=== PATIENT | male | born 1980 | race Caucasian/White ===

== ENCOUNTER 2018-04-25 11:51 | Emergency (ER) | payer OTHER ==
--- NOTE | 2018-04-25 12:08 | CPEKG ---
Heart Rate: 71 RR Interval: 845 P-R Interval: 140 QRSD Interval: 110 QT Interval: 388 QTC Interval: 422 P [place]: 46 QRS [place]: 9 T Wave [place]: 50 EKG Severity - ABNORMAL ECG - EKG Impression: SINUS RHYTHM EKG Impression: NONSPECIFIC INTRAVENTRICULAR CONDUCTION DELAY Electronically Signed By: Vincent Oneal 25-Apr-2018 13:15:52
--- NOTE | 2018-04-25 12:10 | EDPHY ---
H & P Stated Complaint: allergies/dizzyness x 2 days Time Seen by Provider: 04/25/18 12:09 HPI/ROS: HPI: This is a 37-year-old male who presents with Chief Complaint: allergies/dizziness x 2 days Location: Head Quality: Lightheadedness and dizziness Duration: 4 days Signs and Symptoms: no fever, no nausea, no vomiting, no photophobia, no noise sensitivity, no neck stiffness, no ear pain, no tinnitus, no nasal congestion, no sinus pressure, no weakness, no radiation, no aura Timing: Acute, intermittent, worse with changing positions Severity: Moderate Context: Patient has a history of environmental seasonal allergies taking Zyrtec presents with 4 day history of lightheadedness or dizziness that is worsened with changing positions. He reports that he does not feel lightheaded when he lays still. He also has noticed some left anterior chest non radiating pressure that is worsened with palpating his left pectoralis muscle. Patient is right-hand dominant. Patient reports that this is anterior chest discomfort has been present for approximately 4 days. He describes as intermittent in nature and occurring approximately 2-3 times per day. He denies any heavy lifting, injury, trauma. Father had acute ND and CABG x3 in his 50s. This is his 1st episode of chest pain. No recent long distance trips, lower extremity edema. Patient denies any palpitations, cough, wheezing. Yesterday at work he did experience some shortness of breath and diaphoresis when he was walking up stairs. Modifying Factors: Taking Zyrtec Comment: ROS: see HPI Constitutional: No fever, no chills, no weight loss Eyes: No blurred vision Respiratory: No shortness of breath, no cough Cardiovascular: No chest pain, no palpitations Gastrointestinal: No nausea, no vomiting, no diarrhea, no hematemesis, no blood in stool Genitourinary: No dysuria, no blood in urine Extremities: No myalgias, no edema Neurologic: No weakness, no numbness Skin: No rashes, no petechiae Hematologic: No bruising, no bleeding MEDICAL/SURGICAL/SOCIAL HISTORY: Medical history: Generally healthy. Does not take any regular medications. Surgical history: Denies Social history: Never smoked. Family history noncontributory. CONSTITUTIONAL: Extremely well-appearing middle-aged white male, awake and alert, no obvious distress HEENT: Atraumatic and normocephalic, PERRL, EOMI. Nares patent; no rhinorrhea; no nasal mucosal edema. Tympanic membranes mild effusion. Oropharynx clear, no exudate and moist pink mucosa. Airway patent. No lymphadenopathy. No meningismus. Cardiovascular: Normal S1/S2, regular rate, regular rhythm, without murmur rub or gallop. PULMONARY/CHEST: Symmetrical and left anterior reproducible tenderness. Clear to auscultation bilaterally. Good air movement. No accessory muscle usage. ABDOMEN: Soft, nondistended, nontender, no rebound, no guarding, no peritoneal signs, no masses or organomegaly. No CVAT. EXTREMITIES: 2/2 pulses, strength 5/5, no deformities, no clubbing, no cyanosis or edema. NEUROLOGICAL: no focal neuro deficits. GCS 15. SKIN: Warm and dry, no erythema. no rash. Good capillary refill. Source: Patient Exam Limitations: No limitations - Personal History Current Tetanus Diphtheria and Acellular Pertussis (TDAP): Unsure - Medical/Surgical History Hx Asthma: No Hx Chronic Respiratory Disease: No Hx Diabetes: No Hx Cardiac Disease: No Hx Renal Disease: No Hx Cirrhosis: No Hx Alcoholism: No Hx HIV/AIDS: No Hx Splenectomy or Spleen Trauma: No Other PMH: r knee inj - Social History Smoking Status: Never smoked Constitutional: Initial Vital Signs Temperature (C) 36.6 C 04/25/18 11:55 Heart Rate 84 04/25/18 11:55 Respiratory Rate 18 04/25/18 11:55 Blood Pressure 115/92 H 04/25/18 11:55 O2 Sat (%) 96 04/25/18 11:55 O2 Delivery Mode Room Air Allergies/Adverse Reactions: No Known Allergies Allergy (Unverified 04/25/18 11:54) Home Medications: Medication Instructions [facility] Medical Decision Making - Diagnostics EKG Interpretation: 12 lead EKG: Indication: Chest pain Rhythm: Normal sinus rhythm, rate of 71 beats per minute [place]: Normal Intervals: Normal QRS: Normal ST segments: Prominent in V3 and V4 INTERPRETATION: IVCD, No acute ischemic changes The 12 lead EKG was interpreted by myself and with attending. Imaging Results: Imaging Impressions Chest X-Ray 04/25/18 12:17 Impression: Clear lungs. No acute process. ED Course/Re-evaluation: EKG, labs, chest x-ray, IV fluids, oral medications ordered. Placed on electronic device monitor Initial EKG shows no acute ischemic changes. Reviewed this with attending. Given 500 cc normal saline bolus and aspirin 324 mg upon arrival. HEART score=2 points; low score 1225: Notified by tech that troponin is negative 1250: Labs reviewed. No signs of leukocytosis/anemia/platelet dysfunction/ROBIN/ electrolyte imbalance/VTE/CHF/ACS. Chest x-ray my read shows no effusion, no opacity, no pneumothorax, no widened mediastinum. Ears show eustachian tube dysfunction no otitis media, no otitis externa no tympanic perforation. Patient is currently chest pain-free and he will be given referral to Cardiology to modify risk factors and evaluate candidacy for stress test. This patient was seen under the supervision of my secondary supervising physician. I evaluated care for this patient independently. Discussed this patient with Dr. Oneal. Differential Diagnosis: Chest pain including but not limited to myocardial ischemia, pulmonary embolus, chest wall pain, pleural inflammation and pulmonary infectious causes. Dizziness including but not limited to peripheral and central causes of vertigo , orthostatic causes including dehydration, and blood loss. - Data Points Laboratory Results: Laboratory Results 04/25/18 12:05 04/25/18 12:05 04/25/18 04/25/18 04/25/18 12:09 12:05 12:05 WBC RBC Hgb Hct MCV MCH MCHC RDW Plt Count MPV Neut % (Auto) Lymph % (Auto) Webb % (Auto) Eos % (Auto) Baso % (Auto) Nucleat RBC Rel Count Absolute Neuts (auto) Absolute Lymphs (auto) Absolute Monos (auto) Absolute Eos (auto) Absolute Basos (auto) Absolute Nucleated RBC Immature Gran % Immature Gran # D-Dimer 0.34 ug/mLFEU ug/mLFEU (0.00-0.50) Sodium 143 mEq/L mEq/L (135-145) Potassium 4.6 mEq/L mEq/L (3.3-5.0) Chloride 103 mEq/L mEq/L (97-110) Carbon Dioxide 27 mEq/l mEq/l (22-31) Anion Gap 13 mEq/L mEq/L (8-16) BUN 13 mg/dL mg/dL (7-23) Creatinine 1.0 mg/dL mg/dL (0.7-1.3) Estimated GFR > 60 Glucose 88 mg/dL mg/dL (70-100) Calcium 10.4 mg/dL mg/dL (8.5-10.4) POC Troponin I 0.00 ng/mL ng/mL (0.00-0.08) NT-Pro-B Natriuret Pep < 11 pg/mL pg/mL (0-125) 04/25/18 12:05 WBC 9.93 10^3/uL H 10^3/uL (3.80-9.50) RBC 5.75 10^6/uL 10^6/uL (4.40-6.38) Hgb 17.5 g/dL g/dL (13.7-17.5) Hct 52.1 % H % (40.0-51.0) MCV 90.6 fL fL (81.5-99.8) MCH 30.4 pg pg (27.9-34.1) MCHC 33.6 g/dL g/dL (32.4-36.7) RDW 12.9 % % (11.5-15.2) Plt Count 389 10^3/uL 10^3/uL (150-400) MPV 9.0 fL fL (8.7-11.7) Neut % (Auto) 51.9 % % (39.3-74.2) Lymph % (Auto) 36.7 % % (15.0-45.0) Webb % (Auto) 7.9 % % (4.5-13.0) Eos % (Auto) 2.2 % % (0.6-7.6) Baso % (Auto) 1.0 % % (0.3-1.7) Nucleat RBC Rel Count 0.0 % % (0.0-0.2) Absolute Neuts (auto) 5.16 10^3/uL 10^3/uL (1.70-6.50) Absolute Lymphs (auto) 3.64 10^3/uL H 10^3/uL (1.00-3.00) Absolute Monos (auto) 0.78 10^3/uL 10^3/uL (0.30-0.80) Absolute Eos (auto) 0.22 10^3/uL 10^3/uL (0.03-0.40) Absolute Basos (auto) 0.10 10^3/uL 10^3/uL (0.02-0.10) Absolute Nucleated RBC 0.00 10^3/uL 10^3/uL (0-0.01) Immature Gran % 0.3 % % (0.0-1.1) Immature Gran # 0.03 10^3/uL 10^3/uL (0.00-0.10) D-Dimer Sodium Potassium Chloride Carbon Dioxide Anion Gap BUN Creatinine Estimated GFR Glucose Calcium POC Troponin I NT-Pro-B Natriuret Pep Medications Given: Discontinued Medications Aspirin (Aspirin) 324 mg PO EDNOW ONE Stop: 04/25/18 12:22 Last Admin: 04/25/18 12:26 Dose: 324 mg Sodium Chloride (Ns) 500 mls @ 1,000 mls/hr IV EDNOW ONE PRN Reason: Protocol Stop: 04/25/18 12:45 Last Admin: 04/25/18 12:23 Dose: 500 mls Point of Care Test Results: Chemistry 04/25/18 12:09 POC Troponin I 0.00 ng/mL ng/mL (0.00-0.08) Departure - Departure Disposition: Home, Routine, Self-Care Clinical Impression: Atypical chest pain Eustachian tube dysfunction Qualifiers: Laterality: bilateral Qualified Code(s): H69.83 - Other specified disorders of Eustachian tube, bilateral Condition: Good Instructions: Chest Pain (ED) Additional Instructions: Please reduce stress as much as possible. Limit foods that may cause irritation. Continue to take Zyrtec and use [id number] nasal steroid spray like Flonase or Rhinocort daily. Make sure to drink 8 to 10 glasses of water daily. Please call Cardiology for follow-up in the next 1-2 weeks. They will discussed with the risk factor modification and recommend if you are a candidate for stress testing. Return to the ER immediately if you experience new, continued or worsened chest pain, chest pain that radiates, chest pain accompanied by exertion or associated with shortness of breath, sweating, nausea, dizziness, back pain, or any other symptoms that concern you. Referrals: Wilber Suarez MD [Medical Doctor] - As per Instructions JAIRON HAM [Other] - 2-3 days, if not improved Stand Alone Forms: Work Excuse
[2018-04-25] MEDS ORDERED: NS 500 ML IV ONE (12:16)
[2018-04-25] MEDS ORDERED: ASPIRIN 81 MG CHEWABLE TAB PO ONE (12:21)
[2018-04-25 12:23] LABS: PLATELET COUNT 389 10^3/uL (150-400)
[2018-04-25 13:09] VITALS: BP 124/94
== END 2018-04-25 13:11 | disposition home or self-care (01) ==
DX: R07.89 Other chest pain (principal); H69.83 Other specified disorders of Eustachian tube, bilateral; E86.9 Volume depletion, unspecified
CPT/HCPCS: 84484-PO